=== PATIENT | male | born 1970 | race Native Hawaiian/Other Pacific Islander ===

== ENCOUNTER 2016-02-09 12:33 | Emergency (ER) | payer OTHER ==
[~2016-02-09] VITALS: Ht 172.7 cm; Wt 143.8 kg
[2016-02-09 12:35] VITALS: TEMP 97.7
[2016-02-09 14:53] LABS: PLATELET COUNT 266 K/uL (142-355)
[2016-02-09 15:06] LABS: SODIUM 133 mmol/L (136-145)
[2016-02-09 16:27] VITALS: BP 144/80
== END 2016-02-09 16:28 ==
LOC: ED 12:33
DX: K57.30 Diverticulosis of large intestine without perforation or abscess without bleeding (principal); N20.0 Calculus of kidney
CPT/HCPCS: 36415; 80053; 81000; 85027; 93005; 99283